=== PATIENT | male | born 1950 ===

== ENCOUNTER 2021-05-23 16:31 | Emergency (ER) | payer MEDICARE, OTHER ==
[~2021-05-23] VITALS: Ht 175.3 cm; Wt 77.1 kg
[2021-05-23] MEDS ORDERED: ALTEPLASE (RECOMBINANT) 100 MG ONE (16:42)
[2021-05-23] MEDS ORDERED: CALCIUM CHLOR(10%) 100MG/ML 10ML SYRINGE IV ONE (16:52)
[2021-05-23] MEDS ORDERED: EPINEPHrine HCL 1 MG/10 ML SYRG ONE (16:55)
== END 2021-05-23 22:00 ==
LOC: EDBD 16:31 → ER 16:31
DX: I46.9 Cardiac arrest, cause unspecified (principal); R06.89 Other abnormalities of breathing; I49.01 Ventricular fibrillation; I48.91 Unspecified atrial fibrillation; F32.9 Major depressive disorder, single episode, unspecified
CPT/HCPCS: 31500; 92950; 99285; J0171; J2997; 99291